=== PATIENT | male | born 1960 | race Caucasian/White ===

== ENCOUNTER 2024-07-11 10:24 | Outpatient (AMB) | payer MEDICARE, SELFPAY ==
[2024-07-11 10:37] VITALS: BMI 26.6
--- NOTE | 2024-07-11 10:37 | HO.SPINEOV ---
Vital Signs 07/11/24 10:37 Height 6 ft Weight 196 lb BMI 26.6 Intake Visit Reasons: LBP down left leg Intake Note: Mr. Haley is here today c/p Low back pain that radiates down the left leg. Plate Mounter Required: No Allergies No Known Allergies [No Known Allergies*] Allergy (Verified 07/11/24 10:38) Physical Exam Vital Signs: BMI result Body Mass Index 26.6 Assessment & Plan Assessment & Plan (1) Lumbar radiculopathy: Code(s): M54.16 - Radiculopathy, lumbar region Category: Medical Plan This is a 64 year old gentleman who has self-referred to the office today for evaluation of chronic low back pain and more recently superimposed left anterior thigh pain. He tells me that through the years he gets pain in the center of his lumbar region in the lower aspect heading toward the sacral junction if he is overactive or does too much. He generally would treat it with little bit of rest tincture of time and maybe some [id number] anti-inflammatories. This has been stable and very predictable throughout his life. More recently in the last 2 weeks or so he has developed a severe left anterior thigh pain. It starts from his back and radiates around and goes down and stops at about the level of his knee. There is a feeling of weakness in his leg but no tingling or numbness. He went to urgent Care, they told him to do some stretching and sent him home. 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 He came in today to see us as his daughter used to be a patient of ours. PMH: He has a history of coronary disease, he underwent a stent about 3 years ago after suffering an PR. he is followed by Dr. Slade at [facility] cardiology. History of hypertension, high cholesterol. History of left hip replacement about 5 years ago. Denies any history of strokes, pulmonary disease, liver or kidney disease, bleeding disorders, blood clots or major abdominal surgeries. Social hx: He does not smoke, drink use any recreational drugs Medications: Plavix, aspirin, lisinopril, metoprolol, Zetia, atorvastatin, nabumetone Allergies: None Physical exam: Awake alert oriented no acute distress, able to stand up out of a chair independently, strength is full bilateral lower extremities, absent patellar reflexes bilaterally. Imaging review: Lumbar MRI done at [facility] shows bilateral L5 pars defects with grade 1 anterolisthesis L5-S1, no meaningful foraminal stenosis. The little higher up in the left at L2-3 there is disc bulge/herniation causing compression in the lateral recess of the left L3 nerve. Impression: 64-year-old male presents with chronic low back pain and more recently superimposed left L3 radiculopathy. He has 2 findings in his lumbar spine that are meaningful. The 1st is the spondylolysis and anterolisthesis at L5-S1. His chronic low low-grade and manageable low back pain maybe related to this. At this time this is not something that is really aggravated to the point where it needs surgery. What is really bothering him now is the left anterior thigh pain which is new over the last few weeks and I believe is related to his left L2-3 disc bulge/herniation compressing the left L3 nerve root. I told him that this is very early on in the process given that he has only had symptoms for 2 weeks and we should just let tincture of time take its course. He is already working with the [facility] spine and sport team and I suspect they will do an injection at some point which might be helpful. He is going to start with physical therapy there as well. I told him to come back and see me in 6-8 weeks and we can re-evaluate and see how he is doing. Thank you for allowing us to care for your patient. The total time spent with this visit with this patient was 45 minutes reviewing history, physical exam, lumbar imaging review, and implementation of treatment plan or further diagnostic testing Rafael Correia MD,PhD [facility] Coding Level of Care Code New Pt Level 4 (38400) Diagnoses Lumbar radiculopathy M54.16
--- OUTSIDE RECORDS SUMMARY | 2024-07-11 10:43 | XMS_ITS | Clinical Summary ---
Author Organization [employer] Address [address] [place] [address] Care Team Providers Care Project Management Intern Name Role Phone Unavailable Primary Care Provider Unavailabl e Allergies Active Allergy Reactions Criticality Noted Date Comments Penicillin V 03/01/2019 Medications clopidogrel (Plavix) 75 MG tablet Take 75 mg by mouth in the morning. 05/13/2020 Active lisinopril 5 MG tablet Take 5 mg by mouth in the morning. 05/13/2020 Active atorvastatin (Lipitor) 80 MG tablet Take 80 mg by mouth in the morning. 05/13/2020 Active aspirin 81 MG EC tablet Take 81 mg by mouth in the morning. 05/13/2020 Active metoprolol succinate XL (Toprol-XL) 50 MG 24 hr tablet Take 50 mg by mouth in the morning. 05/13/2020 Active ezetimibe (Zetia) 10 MG tablet Take 10 mg by mouth in the morning. 05/23/2022 Active nabumetone (Relafen) 500 MG tablet Take 500 mg by mouth 2 times daily. 05/11/2020 Active Social History Tobacco Use Types Packs/Day Years Used Date Smoking Tobacco: Unknown Sex and Gender Information Value Date Recorded Sex Assigned at Male 12/26/2021 10:28 AM EDT Legal Sex Male 10:28 AM EDT Gender Identity Male 08/01/2022 2:14 PM EDT Sexual Orientation Straight 08/01/2022 2: 14 PM EDT Plan of Treatment Health Maintenance Due Date Last Done Comments CT Colonography 1958 Colonoscopy 1958 Colorectal Cancer Screening 1958 Depression Screening 1958 FIT DNA/Cologuard 1958 FIT 1958 FOBT 1958 Lipid Panel 1958 SDOH Screening 1958 Sigmoidoscopy 1958 Alcohol/Substance Use Screening 1970 Hepatitis C Screening 1976 Pneumococcal Vaccine: 50+ Years (1 of 1 - PCV) 2008 Zoster Vaccines (1 of 2) 2008 Dental Oral Exam 07/30/2015 01/27/2015 Dental Prophylaxis 11/12/2016 05/11/2016, 04/02/2015 Dental X-Ray: Bitewings 05/12/2017 05/11/2016 RSV Patients and Patients Aged 60 years or older (1 - Risk 60-74 years 1-dose series) 2018 Dental X-Ray: Full Mouth 06/07/2018 06/07/2015 DTaP/Tdap/Td Vaccines (3 - T d or Tdap) 12/19/2022 12/19/2012, 01/02/2008, 01/02/2008 Tobacco Screening 08/04/2023 08/03/2022 COVID-19 Vaccine (4 - 2023-2 5 season) 2023 07/12/2021, 10/16/2020, 09/25/2020 Influenza Vaccine (#1) 2023 HIB Vaccines Aged Out No longer eligi ble based on patient's age to complete this topic HPV Vaccines Aged Out No longer eligi ble based on patient's age to complete this topic Hepatitis A Vaccines Aged Out No long er eligible based on patient's age to complete this topic Hepatitis B Vaccines Aged Out No long er eligible based on patient's age to complete this topic IPV Vaccines Aged Out No longer eligi ble based on patient's age to complete this topic Meningococcal B Vaccine Aged Out No l onger eligible based on patient's age to complete this topic Meningococcal Vaccine Aged Out No adilson edel eligible based on patient's age to complete this topic RSV under 20 months Aged Out No longe r eligible based on patient's age to complete this topic Rotavirus Vaccines Aged Out No longer eligible based on patient's age to complete this topic Procedures Procedure Name Priority Date/Time Associated Diagnosis Comments PROPHYLAXIS - ADULT Routine 05/11/2016 1 2:00 AM EDT BITEWINGS - 4 RADIOGRAPHIC IMAGES Routine 05/11/2016 12:00 AM EDT PANORAMIC RADIOGRAPHIC IMAGE Routine 06/07/2015 12:00 AM EDT COMPREHENSIVE ORAL EVALUATION - NEW OR ESTABLISHED PATIENT Routine 01/27/2015 12:00 AM EST from Last 3 Months or Most Recently Relevant to Health Maintenance Insurance [facility] MEDICAID STAND ADULT
== END 2024-07-11 11:25 | disposition home or self-care (01) ==
LOC: HO.HNS 10:25
PROVIDERS: PCP Pediatrics; Visit Provider Physician Assistant
DX: M54.16 Radiculopathy, lumbar region (principal)
CPT/HCPCS: 99204

== ENCOUNTER → 2024-07-11 10:24 | Outpatient (BNVA) | payer MEDICARE, SELFPAY | PROVIDERS: PCP Pediatrics; Visit Provider Physician Assistant | DX: M54.16 Radiculopathy, lumbar region (principal) | CPT/HCPCS: 99202 ==